=== PATIENT | male | born 1970 | race Caucasian/White ===

== ENCOUNTER 2024-09-29 14:07 | Emergency (ER) | payer BC, SELFPAY ==
[2024-09-29 14:16] VITALS: BP 147/107
[2024-09-29 14:45] LABS: COVID-19 Antigen Negative (Negative)
[2024-09-29 16:12] LABS: Glucose - Point of Care 284 mg/dl (70-99)
--- NOTE | 2024-09-29 16:15 | ED.GENMED ---
History of Present Illness
General
Chief Complaint: Fatigue
Source: patient
Exam Limitations: none
Time Seen by Provider: 09/29/24 15:56
Nursing documentation reviewed up to this point in time: agreed with
History of Present Illness
History of Present Illness:
Patient with history of insulin-dependent diabetes, presents to ED secondary to 3-day history of persistent fatigue, body ache, and decreased appetite. Denies fever or chills. Denies coughing. Denies headache. Denies dizziness. Denies sore
throat. Denies nausea, vomiting, or diarrhea. Denies rash. Patient states that his parent was admitted to the hospital recently. Deny recent travel. Denies recent change in medications or diet.
Review of Systems
Review of Systems
Allergies reviewed?: Yes
All Other Systems: ROS reviewed and negative except as documented in HPI and ROS
Constitutional: Reports no symptoms; Denies fever
EENT: Reports no symptoms
Respiratory: Reports no symptoms
Cardiac: Reports no symptoms
ABD/GI: Reports no symptoms
: Reports no symptoms
Musculoskeletal: Reports muscle pain
Skin: Reports no symptoms; Denies rash
Neurological: Reports weakness
Phy Exam
Physical Exam
Physical Exam:
Physical Exam
General: mild distress, not acutely ill. afebrile
Head: nc/at. eomi
Neck: supple. no meningeal signs.
Heart: tachycardic, no murmur. equal radial pulses.
Lungs: no acute respiratory distress. clear bilaterally
Abdomen: normal bowel sounds. not tender.
Neuro: alert and oriented. no focal neurological deficits
Skin: no rash
Psychiatric: well kept. interactive and cooperative
Extremities: no edema. no calf tenderness.
Course
Orders/Labs/Results
Orders:
Orders
09/29/24 14:21
COVID-19 Antigen Urgent
Source: Nasal Swab
Influenza A+B Rapid Molecular Urgent
GRISELDA Source: Nasal Swab
Specimen Description:
09/29/24 16:08
Electrocardiogram (*1) Urgent
Reason for Study: Bradycardia / Tachycardia
EKG- Treatment ONCE
09/29/24 16:09
0.9% Sodium Chloride 1000 ml [Nss] 1,000 ml IV BOLUS
09/29/24 16:24
Complete Blood Count/With Diff Urgent
Comprehensive Metabolic Panel Urgent
Magnesium Urgent
Monotest Urgent
TSH Urgent
Troponin I Urgent
09/29/24 19:36
Urinalysis Reflex To Culture Urgent
Date Specimen was Collected: 09/29/24
Time Specimen was Collected: 19:34
Abnormal Lab Results
09/29/24 09/29/24 09/29/24
16:10 16:24 19:36
RBC 4.39 L 10^6/uL
(4.70-6.10)
Hgb 12.8 L g/dL
(13.0-18.0)
Hct 37.9 L %
(39.0-52.0)
Absolute Monos (auto) 0.9 H 10^3/uL
(0.1-0.6)
Sodium 134 L mmol/L
(135-145)
Carbon Dioxide 20 L mmol/L
(22-30)
BUN 25 H mg/dl
(9-20)
Glucose 219 H mg/dl
(70-99)
Magnesium 1.4 L mg/dl
(1.6-2.3)
Urine Glucose 2+ A
(Negative)
POC Glucose 284 H mg/dl
(70-99)
09/29/24 16:24
09/29/24 16:24
Vital Signs
Initial and Last Documented VS:
Initial Vital Signs
Temp Pulse Resp BP Pulse Ox
97.6 F 120 18 147/107 100
09/29/24 14:16 09/29/24 14:16 09/29/24 14:16 09/29/24 14:16 09/29/24 14:16
Last Documented Vital Signs
Temp Pulse Resp BP Pulse Ox
97.6 F 98 24 135/87 99
09/29/24 14:16 09/29/24 19:15 09/29/24 19:15 09/29/24 19:00 09/29/24 18:15
MDM/Problems Addressed
MDM/Problems Addressed:
Patient with an unremarkable workup in ED and remains hemodynamically stable during extended course of observation in ED. History and exam consistent with likely nonspecific viral illness. Patient will be discharged home in stable condition at
this time, with recommendation to follow-up with PCP for reevaluation, or return to ED with worsening symptoms. Patient expresses understanding at time of discharge.
*EKG
Interpreted by ED Provider?: Yes
EKG Intrepretation Date: 09/29/24
Heart Rate: 106
Rate: tachycardiac
Rhythm: sinus
[place]: normal axis
*Critical Care Note
Total Time (30-74mins, 75-104mins- exclusive of procedures): Not Applicable
ED Attending Note
-
Portions of this chart may have been created with voice recognition software.� Occasional wrong word or��sound alike� substitutions may have occurred due to the inherent limitations of voice recognition software.
Discharge Plan
Departure
Patient Disposition: Home (Routine Discharge)
Date of Disposition: 09/29/24
Time of Disposition: 19:49
Patient with high blood pressure during this ER visit?: Yes
Condition: Good
Discharge Problem:
Acute viral syndrome
Instructions: Flu in adults - Discharge instructions
Referrals:
Radu Kingsley PA-C [Family Provider] -
Activity Restrictions/Additional Instructions:
As discussed, please follow-up with your primary care physician for reevaluation, or return to ED with worsening symptoms.
Interventions
Interventions:
*Risk Screen - Suicide Last Done: 09/29/24 14:16
*General Assessment Last Done: 09/29/24 14:16
*Neglect/Abuse Screening Last Done: 09/29/24 20:24
ED- Fall Risk Assessment Last Done: 09/29/24 20:24
*ED COVID-19 Vaccine History Last Done: 09/29/24 14:16
*Nursing Disposition Last Done: 09/29/24 20:24
Discharge Date and Time
Discharge Date/Time: 09/29/24 20:24
Print Language: ITALIAN
[2024-09-29 16:29] VITALS: BP 136/80
[2024-09-29] MEDS: NSS 1000 IV (16:32)
[2024-09-29 16:43] LABS: % Basophils 0.5 % (0-2); % Eosinophils 2.4 % (0-6); % Immature Granulocytes 0.3 % (0-0.5); % Lymphocytes 30.7 % (20.5-51.1); % Monocytes 9.3 % (1.7-9.3); % Neutrophils 56.8 % (42.2-75.2); Absolute Basophils 0.1 10^3/uL (0-0.2); Absolute Eosinophils 0.2 10^3/uL (0-0.7); Absolute Lymphocytes 2.8 10^3/uL (1.2-3.4); Absolute Monocytes 0.9 10^3/uL (0.1-0.6); Absolute Neutrophils 5.3 10^3/uL (1.4-6.5); Hematocrit 37.9 % (39.0-52.0); Hemoglobin 12.8 g/dL (13.0-18.0); Mean Corp Hgb Conc. 33.8 g/dL (33.0-37.0); Mean Corpuscular Hgb 29.2 pg (27.0-31.0); Mean Corpuscular Volume 86.3 fL (80.0-94.0); Mean Platelet Volume 10.4 fL (7.4-10.4); Nucleated Red Blood Cells % 0 % (-); Platelet Count 296 10^3/uL (130-400); Red Blood Cell Count 4.39 10^6/uL (4.70-6.10); Red Cell Dist. Width 13.2 % (11.5-14.5); White Blood Cell Count 9.3 10^3/uL (4.8-10.8)
[2024-09-29 16:57] LABS: ALT (SGPT) 18 U/L (0-50); AST (SGOT) 18 U/L (17-59); Albumin 4.2 g/dl (3.5-5.0); Alkaline Phosphatase 67 U/L (38-126); Blood Urea Nitrogen 25 mg/dl (9-20); Calcium 8.5 mg/dl (8.4-10.2); Carbon Dioxide 20 mmol/L (22-30); Chloride 100 mmol/L (98-107); Glucose 219 mg/dl (70-99); Magnesium 1.4 mg/dl (1.6-2.3); Potassium 3.8 mmol/L (3.5-5.1); Sodium 134 mmol/L (135-145); Total Bilirubin 0.2 mg/dl (0.2-1.3); Total Protein 6.7 g/dl (6.3-8.2); eGFR > 60.00
[2024-09-29 17:00] VITALS: BP 128/75
[2024-09-29 17:08] LABS: Troponin I < 0.012 ng/ml
[2024-09-29 17:11] LABS: Monotest Negative (Negative)
[2024-09-29 17:40] LABS: TSH 1.75 uIU/ml (0.47-4.68)
[2024-09-29 18:00] VITALS: BP 132/83
[2024-09-29 19:00] VITALS: BP 135/87
[2024-09-29 19:45] LABS: Urine Albumin Negative (Neg - Trace); Urine Bilirubin Negative (Negative); Urine Character Clear (Clear); Urine Color Yellow; Urine Glucose 2+ (Negative); Urine Ketone Negative (Negative); Urine Leukocyte Negative (Negative); Urine Nitrite Negative (Negative); Urine Occult Blood Negative (Negative); Urine Urobilinogen Negative (Neg - 1+)
== END 2024-09-29 20:24 | disposition home or self-care (01) ==
LOC: EMR 14:07
PROVIDERS: Emergency Medicine; EMERGENCY PHYSICIAN Emergency Medicine; FAMILY PHYSICIAN Physician Assistant Medical
DX: B34.9 Viral infection, unspecified (principal); E11.9 Type 2 diabetes mellitus without complications; Z79.4 Long term (current) use of insulin
CPT/HCPCS: 96360; 99284; 80053; 81003; 82962; 83735; 84443; 84484; 85025; 86308; 87502; 87811; 93005

== ENCOUNTER 2025-03-29 12:22 | Observation (INO) | payer MEDICAID, SELFPAY ==
[2025-03-29] VITALS (12 sets, daily range): BP systolic 132–190; BP diastolic 81–121; BMI 31.1
[2025-03-29 07:49] LABS: Glucose - Point of Care 436 mg/dl (70-99)
--- NOTE | 2025-03-29 08:13 | ED.GENMED ---
History of Present Illness
General
Chief Complaint: Weakness
Source: patient
Exam Limitations: none
Time Seen by Provider: 03/29/25 07:54
Nursing documentation reviewed up to this point in time: agreed with
History of Present Illness
History of Present Illness:
Patient with history of bipolar disorder and diabetes, presents to ED secondary to generalized weakness, decreased appetite, and 'not feeling well', over the past 3 days. As such, patient has not been taking his medications. Denies fever. Denies
coughing. Patient reports nausea sensation without vomiting or diarrhea. Denies abdominal pain. Denies rash. Denies headache. Denies dizziness. Denies sick contact. Denies recent travel. Denies recent change in medications or diet.
Review of Systems
Review of Systems
Allergies reviewed?: Yes
All Other Systems: ROS reviewed and negative except as documented in HPI and ROS
Constitutional: Reports no symptoms; Denies fever
EENT: Reports no symptoms
Respiratory: Reports no symptoms; Denies cough
Cardiac: Reports no symptoms
ABD/GI: Reports nausea; Denies abdominal pain, vomiting or diarrhea
: Reports no symptoms
Musculoskeletal: Reports no symptoms
Skin: Reports no symptoms
Neurological: Reports weakness; Denies dizzy or headache
Phy Exam
Physical Exam
Physical Exam:
Physical Exam
General: mild distress, not acutely ill. afebrile. tachycardic
Head: nc/at. eomi
Neck: supple. no meningeal signs. normal posterior pharynx
Heart: s1/s2 regular rate and rhythm
Lungs: no acute respiratory distress. clear bilaterally
Abdomen: normal bowel sounds. not tender.
Neuro: alert and oriented x 3. no focal neurological deficits
Skin: no rash
Psychiatric: well kept. interactive and cooperative
Extremities: no edema. no calf tenderness.
Sepsis
Sepsis Screening
Sepsis Assessment: Sepsis Ruled Out
Sepsis Screen
Sepsis Screen: Sepsis Ruled Out
Date: 03/30/25
Time: 09:17
Course
Orders/Labs/Results
Orders:
Orders
03/29/25 08:07
Electrocardiogram (*1) Urgent
Reason for Study: Tachycardia
EKG- Treatment ONCE
03/29/25 08:09
IV Insert/Care/Rem.- Treatment PRN
0.9% Sodium Chloride 1000 ml [Nss] 1,000 ml IV BOLUS
03/29/25 08:19
B-Hydroxybutyrate Urgent
Complete Blood Count/With Diff Urgent
Comprehensive Metabolic Panel Urgent
Glycohemoglobin (HgbA1c) Urgent
Magnesium Urgent
Troponin I Urgent
Venous Blood Gas Urgent
%Oxygen/Room Air: 98
03/29/25 08:35
Depakane Urgent
TSH Reflex To Free T4 Urgent
Comment: ADDON
03/29/25 09:21
0.9% Sodium Chloride 1000 ml [Nss] 1,000 ml IV BOLUS
03/29/25 09:50
Valproate Sodium [Depacon] 500 mg 0.9% Sodium Chloride 50 ml [Nss] 50 ml IV NOW
03/29/25 Lunch
2000 calorie (17 carb) Diabetic
At Your Request: Limited, Desilverizer Required
Does patient need a safe tray?: No
03/29/25 10:07
Thiothixene [Navane] 2 mg PO NOW STA
03/29/25 11:36
Insulin Aspart [NOVOLOG vial] 5 units SC NOW STA
03/29/25 11:39
Admit/Transfer Patient As Directed
Co-Sign Provider:
Level of Care: Observation services
Assign to:: Telemetry
Physician / Group: Dr Perez
Diagnosis: MARYSOL
Reason for Telemetry: Arrhythmia
Date to Stop Telemetry: 04/01/25
Time to Stop Telemetry: 11:00
PRN Pain Medication Management As Directed
May give lesser potent ordered pain med per pt: Yes
preference::
Protocol:: Medication orders for pain may be administered in a
manner that supports deferring to patient preference
when the pt is:
- Requesting an ordered lesser potent pain medication.
Least to most potent pain medications are defined
as: acetaminophen < NSAID < tramadol < opioids
(morphine, oxycodone, hydromorphone).
- Requesting a lesser dose of the same medication IF
ORDERED.
- Requesting a less intrusive route of administration
if both routes are prescribed by the provider (PO <
IV).
03/29/25 11:42
Code Status As Directed
Resuscitation Status: Full Code
03/29/25 11:45
0.9% Sodium Chloride 1000 ml [Nss] 1,000 ml IV 125 mls/hr
0.9% Sodium Chloride 1000 ml [Nss] 1,000 ml IV 125 mls/hr
Dextrose 50%-Water [Dextrose 50% Syringe] 12.5 grams IV [id number] PRN
Glucagon [GlucaGen] 1 mg IM PRN PRN
Bedside Glucose Monitoring As Directed
Frequency: AC&HS
Additional Instructions:: Change to q6h if pt on TPN, tube feeding or not eating
03/29/25 11:46
Bladder Scan As Directed
Follow Bladder Retention/Intermittent Cath Algorithm?: Yes
PRN if no void in __ hours: 6
Frequency: Per Retention Algorithm
If Bladder Scan Result >: 400
then:: Straight cath
Straight Cath As Directed
Frequency: Per Retention Algorithm
Additional Instructions: straight cath as needed per acute urinary retention algorithm for 24 hrs
Additional Instructions: for bladder scan greater than 400 mL
03/29/25 12:00
0.9% Sodium Chloride 500 ml [Nss] 500 ml IV 100 mls/hr
03/29/25 13:31
Bisacodyl [Dulcolax] 10 mg RECTAL [id number] PRN
Docusate W/Senna [Senokot-S] 1 tablet PO BIDPRN PRN
Polyethylene Glycol Powder [Miralax] 17 grams PO DAILYPRN PRN
03/29/25 13:31
Activity As Directed
Activity Level: Out of Bed-Early Mobility
Vital Signs As Directed
Frequency: Per unit guidelines
DX Deep Vein Thrombosis Video Routine
03/29/25 16:00
Heparin 5,000 units SC Q8
03/29/25 16:30
Insulin Aspart Corrective Mod [Novolog Flexpen-Moderate Resistance] See Protocol SC AC
Insulin Aspart Pen [Novolog Flexpen] 12 units SC AC
03/29/25 18:00
Divalproex Delayed Rel. 12 Hr [Depakote (12 Hr Release)] 500 mg PO QPM
03/29/25 22:36
Urinalysis Urgent
Date Specimen was Collected: 03/29/25
Time Specimen was Collected: 22:32
03/30/25 06:14
Basic Metabolic Panel IN AM
Complete Blood Count/No Diff IN AM
03/30/25 08:00
Divalproex Delayed Rel. 12 Hr [Depakote (12 Hr Release)] 1,000 mg PO DAILY
thiothixene See Dose Instructions PO DAILY
04/01/25 11:00
DC Protocol for Telemetry ONCE
Abnormal Lab Results
03/29/25 03/29/25 03/29/25
07:47 08:19 08:35
Abs Immat Gran (auto) 0.1 H 10^3/uL
(0-0.05)
Absolute Monos (auto) 1.0 H 10^3/uL
(0.1-0.6)
Immature Gran % 0.6 H %
(0-0.5)
Monocytes % 10.8 H %
(1.7-9.3)
VBG pO2 76 H mmHg
(30-50)
BUN 27 H mg/dl
(9-20)
Creatinine 1.4 H mg/dL
(0.7-1.3)
Glucose 491 H* mg/dl
(70-99)
Hemoglobin A1c 7.6 H %
(4.0-5.6)
Valproic Acid 22.5 L ug/ml
(50.0-120.0)
POC Glucose 436 H mg/dl
(70-99)
03/29/25 03/29/25
09:01 11:09
Abs Immat Gran (auto)
Absolute Monos (auto)
Immature Gran %
Monocytes %
VBG pO2
BUN
Creatinine
Glucose
Hemoglobin A1c
Valproic Acid
POC Glucose 396 H mg/dl 284 H mg/dl
(70-99) (70-99)
03/29/25 08:19
03/29/25 08:19
Vital Signs
Initial and Last Documented VS:
Initial Vital Signs
Pulse Resp Pulse Ox
123 20 96
03/29/25 07:58 03/29/25 07:58 03/29/25 07:58
Last Documented Vital Signs
Temp Pulse Resp BP Pulse Ox
99.5 F 128 17 179/108 96
03/30/25 08:49 03/30/25 08:49 03/30/25 08:49 03/30/25 08:49 03/30/25 08:49
MDM/Problems Addressed
MDM/Problems Addressed:
History and exam consistent with hyperglycemia without anion gap, likely secondary to dehydration. Acute renal failure noted, likely prerenal due to lack of oral intake. Depakote level found to be subtherapeutic. As such, patient will be given
Depakote 500 mg IV bolus in ED.
BS noted after 2 L IVF bolus. After discussion with admitting hospitalist, will provide 5 units insulin SC.
*Pulse Oximetry
SaO2: 96
Oxygen Mode of Delivery: Room air
Patient hypoxic: no
*EKG
Interpreted by ED Provider?: Yes
EKG Intrepretation Date: 03/29/25
Heart Rate: 117
Rate: tachycardiac
Rhythm: sinus
[place]: normal axis
Interval: normal interval
*Critical Care Note
Total Time (30-74mins, 75-104mins- exclusive of procedures): Not Applicable
ED Attending Note
-
Portions of this chart may have been created with voice recognition software.� Occasional wrong word or��sound alike� substitutions may have occurred due to the inherent limitations of voice recognition software.
Discharge Plan
Departure
Patient Disposition: Admit
Date of Disposition: 03/29/25
Time of Disposition: 10:12
Admit to: Med/Surg
Presentation/result/management discussed w/ accepting MD/DO: Hospitalist
Discharge Problem:
Hyperglycemia, Acute renal failure, subtherapeutic drug level
Interventions
Interventions:
*General Assessment Last Done: 03/29/25 08:12
*Neglect/Abuse Screening Last Done: 03/29/25 08:24
*Nursing Disposition Last Done: 03/29/25 13:26
ED- Cardiac Assessment Last Done: 03/29/25 08:15
ED- Neurological Assessment Last Done: 03/29/25 08:15
ED- Pulmonary Assessment Last Done: 03/29/25 08:15
Discharge Date and Time
Discharge Date/Time: 03/29/25 13:37
[2025-03-29] MEDS: NSS 1000 IV ×3 (08:16→12:18)
[2025-03-29 08:35] LABS: Venous Blood Gas B.E. -1.6 mmol/L (-4 to +4); Venous Blood Gas HCO3 23.7 mmol/L (22-27); Venous Blood Gas O2 Sat % 96.4 %; Venous Blood Gas pCO2 41 mmHg (35-48); Venous Blood Gas pH 7.37 (7.32-7.43); Venous Blood Gas pO2 76 mmHg (30-50)
[2025-03-29 08:36] LABS: Venous Blood Gas O2 Therapy 98
[2025-03-29 08:38] LABS: % Basophils 0.6 % (0-2); % Eosinophils 0.8 % (0-6); % Immature Granulocytes 0.6 % (0-0.5); % Lymphocytes 28.6 % (20.5-51.1); % Monocytes 10.8 % (1.7-9.3); % Neutrophils 58.6 % (42.2-75.2); Absolute Basophils 0.1 10^3/uL (0-0.2); Absolute Eosinophils 0.1 10^3/uL (0-0.7); Absolute Immature Granulocytes 0.1 10^3/uL (0-0.05); Absolute Lymphocytes 2.8 10^3/uL (1.2-3.4); Absolute Neutrophils 5.6 10^3/uL (1.4-6.5); Hematocrit 42.7 % (39.0-52.0); Hemoglobin 14.3 g/dL (13.0-18.0); Mean Corp Hgb Conc. 33.5 g/dL (33.0-37.0); Mean Corpuscular Hgb 29.2 pg (27.0-31.0); Mean Corpuscular Volume 87.1 fL (80.0-94.0); Nucleated Red Blood Cells % 0 % (-); Platelet Count 268 10^3/uL (130-400); Red Cell Dist. Width 14.1 % (11.5-14.5); White Blood Cell Count 9.6 10^3/uL (4.8-10.8)
[2025-03-29 09:02] LABS: Glucose - Point of Care 396 mg/dl (70-99)
[2025-03-29 09:13] LABS: Troponin I < 0.012 ng/ml
[2025-03-29 09:19] LABS: Depakane 22.5 ug/ml (50.0-120.0)
[2025-03-29 09:33] LABS: AST (SGOT) 23 U/L (17-59); Albumin 4.7 g/dl (3.5-5.0); Alkaline Phosphatase 80 U/L (38-126); Blood Urea Nitrogen 27 mg/dl (9-20); Calcium 9.9 mg/dl (8.4-10.2); Carbon Dioxide 22 mmol/L (22-30); Chloride 103 mmol/L (98-107); Estimated Creatinine Clearance 79 ml/min; Glucose 491 mg/dl (70-99); Magnesium 1.8 mg/dl (1.6-2.3); Potassium 4.9 mmol/L (3.5-5.1); Sodium 139 mmol/L (135-145); Total Bilirubin 0.6 mg/dl (0.2-1.3); Total Protein 7.4 g/dl (6.3-8.2); eGFR 59.36
[2025-03-29] MEDS: DEPACON 55 MG IV (10:00)
[2025-03-29 10:01] LABS: ALT (SGPT) 37 U/L (0-50)
[2025-03-29 10:47] LABS: B-Hydroxybutyrate 0.19 mmol/L (0.02-0.27)
[2025-03-29 11:10] LABS: Glucose - Point of Care 284 mg/dl (70-99)
--- NOTE | 2025-03-29 11:43 | HPS.HSE ---
Family Physician
-
Family Physician: MAIDA MANLEY PA-C
Chief Complaint
-
Fatigue
History of Present Illness
Patient 54 years old male with past medical history of bipolar, diabetes mellitus, obesity, came into the hospital with generalized weakness. Patient tells me that he feels 'extremely tired' for the last several days and also decreased appetite and
has not been taking his medications over the last couple of days. He denies nausea vomiting or diarrhea. He denies fevers or chills. He denies chest pain or shortness of breath. He denies cough dysuria or rash. In the ER he was noted to be in
MARYSOL and significant hyperglycemia and he was given IV fluid and some insulin. He was referred to hospitalist service for further evaluation
Medical History
Past Medical History
Past Medical History: Reports Other (Diabetes mellitus, bipolar disorder, obesity.)
Past Surgical History: Reports None
Social History
Tobacco: Non-smoker
Alcohol: None
Drug: None
Family History
Family History: Not pertinent
Allergies / Home Medications
Allergies reflects when Allergies were last updated in [employer].
Home Medications with original date entered in [employer]
Allergy/Medication List:
Allergies
Allergy/AdvReac Type Severity Reaction Status Date / Time
No Known Allergies Allergy Verified 09/29/24 14:19
Home Medications
divalproex 500 mg tablet,delayed release 1,000 mg PO DAILY 03/29/25
divalproex 500 mg tablet,delayed release 500 mg PO QPM 03/29/25
hydrochlorothiazide 12.5 mg capsule 12.5 mg PO DAILY 03/29/25
insulin aspart U-100 100 unit/mL (3 mL) subcutaneous pen (Novolog FlexPen U-100 Insulin aspart) 12 unit SC AC 03/29/25
insulin glargine 100 unit/mL subcutaneous solution (Lantus U-100 Insulin) 30 unit SC QPM 03/29/25
insulin glargine 100 unit/mL subcutaneous solution (Lantus U-100 Insulin) 45 unit SC DAILY 03/29/25
metformin 1,000 mg tablet 1,000 mg PO BID 03/29/25
semaglutide 1 mg/dose (4 mg/3 mL) subcutaneous pen injector (Ozempic) 1 mg SC FR 03/29/25
sitagliptin phosphate 100 mg tablet (Januvia) 100 mg PO DAILY 03/29/25
thiothixene 2 mg capsule 2 mg PO DAILY 03/29/25
Review of Systems
-
A 12 point ROS was completed and negative except as noted: Yes
Physical Exam
Vital Signs
Vital Signs
Temp Pulse Resp BP Pulse Ox
98.2 F 99 32 162/99 96
03/29/25 08:04 03/29/25 10:00 03/29/25 10:00 03/29/25 10:00 03/29/25 08:17
Physical exam:
General: Acutely ill
HEENT: Normocephalic, Atraumatic and Moist Mucous Membranes
Respiratory: Clear to Auscultation; Negative Wheezes, Rales or Rhonchi
Cardiac: Regular Rhythm and S1/S2
GI: Soft, Nontender and Nondistended
Musculoskeletal: No Clubbing, No Cyanosis and No Edema
Neuro: Awake, Alert and Oriented, no neurological deficit
Psych: Calm, flat affect
Physical Exam
General: Other
Laboratory Results
-
03/29/25 08:19
03/29/25 08:19
Laboratory Results
Total Bilirubin 0.6 mg/dl (0.2-1.3) 03/29/25 08:19
AST 23 U/L (17-59) 03/29/25 08:19
ALT 37 U/L (0-50) 03/29/25 08:19
Alkaline Phosphatase 80 U/L (38-126) 03/29/25 08:19
Troponin I < 0.012 ng/ml 03/29/25 08:19
Data Reviewed
-
Lab Data: Labs Reviewed by me
Impression/Plan
-
IMPRESSION:
Patient 54 years old male with history of bipolar disorder, diabetes mellitus, came into the hospital with generalized weakness and found to be in MARYSOL and significant hyperglycemia. Patient will be observed in the hospital.
PLAN:
Generalized weakness:
Unclear etiology, probably viral
Check CPK
Check TSH
groundwater monitoring technician
Increase ambulation
MARYSOL:
Aggressive IV fluid
Avoid nephrotoxic
Check bladder scan
Check renal function in a.m.
Diabetes mellitus with hyperglycemia:
No evidence of DKA or honk
Blood sugar close to 500 but coming down to 200's now prior to insulin treatment.
Resume his home insulin regimen and oral hypoglycemic
Add insulin sliding scale and check hemoglobin A1c
Bipolar:
Given IV Depakote
Depakote level 22.5 today
Resume oral Depakote and thiothixene
DVT prophylaxis:
Heparin SC
CODE STATUS:
Full code
Time spent 55 minutes
[2025-03-29] MEDS: NOVOLOG vial 5 UNITS SC (12:12)
[2025-03-29 12:37] LABS: Glycohemoglobin (HgbA1c) 7.6 % (4.0-5.6)
--- NOTE | 2025-03-29 14:30 | PTCARENOTE ---
Upon arrival to unit pt 190/118. Patient denies discomfort, asking for something to eat and drink. IVF running, will recheck BP agin after pt is settled.
--- NOTE | 2025-03-29 15:15 | PTCARENOTE ---
BP recheck 172/121. Patient repors 6/10 headache pain behind R eye. Dr. Perez contacted, IV Hydralazine administered and PO Tylenol. 15 minutes later patient reports headache has resolved. BP rechecked, now 179/106 manually, HR tachy with ambulation
110-140s, patient asymptomatic. Dr. Perez updated. PO Norvasc administered, see MAR. EKG completed. Patient sent for CT of head.
[2025-03-29] MEDS: TYLENOL 650 MG PO (15:26)
[2025-03-29] MEDS: APRESOLINE 10 MG IV (15:27)
--- NOTE | 2025-03-29 15:50 | PTCARENOTE ---
Patient becoming agitated during care and admissions process. Asking staff to leave him alone and get out of his room. 'You've been harassing me for an hour and I just want an hour alone'. Uncooperative at times, refusing to go to CT scan. Staff
convincing patient to go.
[2025-03-29] MEDS: NORVASC 5 MG PO (16:12)
[2025-03-29] MEDS: HEPARIN 5000 UNITS SC (16:12)
[2025-03-29 16:35] LABS: Glucose - Point of Care 262 mg/dl (70-99)
--- NOTE | 2025-03-29 17:14 | PTCARENOTE ---
RN going to check on patient, finding him getting dressing with director of casework department off. States he is being harassed here and is going to leave. RN deescalating situation, using therapeutic communication. Patient agreeing to stay for now and to be
reconnected to telemetry monitoring--but states he wants to be left alone for an hour.
[2025-03-29 17:37] LABS: TSH Reflex To Free T4 1.71 uIU/ml (0.47-4.68)
[2025-03-29] MEDS: LR 1000 IV (18:31)
[2025-03-29] MEDS: NOVOLOG FLEXPEN SC (18:34)
[2025-03-29] MEDS: DEPAKOTE (12 HR RELEASE) 500 MG PO (18:35)
--- NOTE | 2025-03-29 18:35 | PTCARENOTE ---
Patient assisted to transfer in to private room, all belongings brought at time of transfer. Patient ambulating with steady gait. Patient then refusing to take insulin from this RN, stating 'You're harassing me. I'm going to report you. I will take
my insulin from my new nurse'. RN asking if she can administer insulin before she goes, but pt adamantly refusing. Will pass this on to next RN.
[2025-03-29 18:45] LABS: Glucose - Point of Care 325 mg/dl (70-99)
[2025-03-29] MEDS: NOVOLOG FLEXPEN-MODERATE RESISTANCE 7 UNITS SC (20:10)
[2025-03-29] MEDS: LANTUS 0.3 UNITS SC (20:11)
[2025-03-29 22:32] LABS: Glucose - Point of Care 326 mg/dl (70-99)
[2025-03-29 22:49] LABS: Urine Albumin 2+ (Neg - Trace); Urine Bilirubin Negative (Negative); Urine Character Clear (Clear); Urine Color Yellow; Urine Glucose 4+ (Negative); Urine Ketone Negative (Negative); Urine Leukocyte Negative (Negative); Urine Nitrite Negative (Negative); Urine Occult Blood 1+ (Negative); Urine Urobilinogen Negative (Neg - 1+)
[2025-03-29 22:54] LABS: Urine Squamous Cell 0-2 /LPF (Few)
[2025-03-29 22:55] LABS: Urine Bacteria Few (Negative)
[2025-03-29 22:56] LABS: Amphetamines Negative (Negative); Barbiturates Negative (Negative); Benzodiazepines Negative (Negative); Buprenorphine Negative (Negative); Cocaine Negative (Negative); Marijuana Negative (Negative); Methadone Negative (Negative); Methamphetamines Negative (Negative); Opiates Negative (Negative); Phencyclidine Negative (Negative); Tricyclic Antidepressants Negative (Negative)
[2025-03-30] MEDS: HEPARIN SC (00:12)
[2025-03-30] MEDS: NSS 1000 IV (02:29)
[2025-03-30 02:57] VITALS: BP 173/107
[2025-03-30] MEDS: COMPAZINE 5 MG IV (06:19)
[2025-03-30 06:24] LABS: Hematocrit 39.2 % (39.0-52.0); Mean Corp Hgb Conc. 33.2 g/dL (33.0-37.0); Mean Corpuscular Hgb 28.8 pg (27.0-31.0); Mean Corpuscular Volume 86.9 fL (80.0-94.0); Mean Platelet Volume 9.7 fL (7.4-10.4); Platelet Count 256 10^3/uL (130-400); Red Blood Cell Count 4.51 10^6/uL (4.70-6.10); Red Cell Dist. Width 14.1 % (11.5-14.5); White Blood Cell Count 10.6 10^3/uL (4.8-10.8)
--- NOTE | 2025-03-30 06:27 | PTCARENOTE ---
Pt sitting on side of bed with telemetry off asking for his IV to be removed saying 'I am going home today I am going to sign myself out' Pt agreed to have his blood work drawn and to wait for the doctor to see it. YOVANY Bey notified about situation.
[2025-03-30 06:53] LABS: Blood Urea Nitrogen 18 mg/dl (9-20); Calcium 9.8 mg/dl (8.4-10.2); Carbon Dioxide 23 mmol/L (22-30); Chloride 108 mmol/L (98-107); Creatine Phosphokinase 136 U/L (55-170); Estimated Creatinine Clearance 100 ml/min; Glucose 272 mg/dl (70-99); Potassium 4.4 mmol/L (3.5-5.1); Sodium 142 mmol/L (135-145); eGFR > 60.00
[2025-03-30 07:48] LABS: Glucose - Point of Care 283 mg/dl (70-99)
[2025-03-30 08:49] VITALS: BP 179/108
[2025-03-30] MEDS: NSS IV (08:58)
[2025-03-30] MEDS: NOVOLOG FLEXPEN 12 UNITS SC (09:23)
[2025-03-30] MEDS: NOVOLOG FLEXPEN-MODERATE RESISTANCE 5 UNITS SC (09:24)
[2025-03-30] MEDS: LANTUS 0.45 UNITS SC (09:25)
[2025-03-30] MEDS: DEPAKOTE (12 HR RELEASE) 1000 MG PO (09:26)
[2025-03-30] MEDS: GLUCOPHAGE 1000 MG PO (09:27)
[2025-03-30] MEDS: HEPARIN 5000 UNITS SC (09:28)
[2025-03-30] MEDS: JANUVIA 100 MG PO (09:28)
[2025-03-30] MEDS: ORETIC 12.5 MG PO (09:32)
[2025-03-30] MEDS: COZAAR 25 MG PO (09:32)
[2025-03-30] MEDS: NORVASC 5 MG PO (09:33)
[2025-03-30] MEDS: TOPROL XL 25 MG PO (09:57)
[2025-03-30 11:23] VITALS: BP 159/100
--- NOTE | 2025-03-30 11:36 | W.PN.HOSP.TC ---
Today's Communication/Plan
-
Discharge planning today
Assessment / Plan
Assessment / Plan
Physical exam:
General: Well Developed, Well Nourished and No Apparent Distress
HEENT: Normocephalic, Atraumatic and Moist Mucous Membranes
Respiratory: Clear to Auscultation; Negative Wheezes, Rales or Rhonchi
Cardiac: Regular Rhythm and S1/S2
GI: Soft, Nontender and Nondistended
Musculoskeletal: No Clubbing, No Cyanosis and No Edema
Neuro: Awake, Alert and Oriented, no neurological deficit, mild tremors
Psych: Flat affect
A/P:
Generalized weakness:
Unclear etiology but feels back to normal
TSH and CPK were normal labs unrevealing and remains afebrile
Urine toxicology negative
MARYSOL:
Resolved
Stop IV fluids
Hypertension, uncontrolled:
Improving
Add Toprol-XL 25 mg once a day
Continue his outpatient losartan and HCTZ
Might need further adjustments as outpatient
Diabetes mellitus with hyperglycemia:
Improving
No evidence of DKA or honk
Back on his home regimen
Hemoglobin A1c 7.6
Bipolar:
Given IV Depakote
Depakote level 22.5 today
Resume oral Depakote and thiothixene
He tells me he follows up with behavioral health provider at [place] and he has scheduled good follow-up as outpatient who I recommended to continue
DVT prophylaxis:
Heparin SC
CODE STATUS:
Full code
Anticipated Discharge: Today
Subjective/Interval History
-
Date of Service: March 30, 2025
Patient denies any new complaints. Mild tremors but states that this is chronic and normal for him. Blood pressure elevated but trending down overall.
Objective Data
-
Labs:
Laboratory Results
03/30/25
06:14
WBC 10.6
Hgb 13.0
Hct 39.2
Plt Count 256
Sodium 142
Potassium 4.4
Chloride 108 H
Carbon Dioxide 23
BUN 18
Creatinine 1.1
Glucose 272 H
Calcium 9.8
Vital Signs:
Vital Signs
Temp Pulse Resp BP Pulse Ox
99 F 109 16 159/100 96
03/30/25 11:23 03/30/25 11:23 03/30/25 11:23 03/30/25 11:23 03/30/25 11:23
I&O
03/29/25 03/30/25 03/31/25
06:59 06:59 06:59
Intake Total 0 / 0
Output Total 0 / 0
Balance 0 / 0
--- NOTE | 2025-03-30 11:36 | W.DCSUMMARY ---
Discharge Summary
Discharge Data
Date of Admission: 03/29/25
Date of Discharge: 03/30/25
-
Pending Results: No
Hospital Course
Patient 54 years old male with history hypertension, diabetes mellitus, bipolar came into the hospital with generalized fatigue and found to be in MARYSOL. Patient also was noticed to be very hypertensive. Patient was started on IV fluids and his
kidney function improved. His creatinine went from 1.4 down to 1.1. He was given supplemental insulin and restarted back on his home regimen of insulin and oral hypoglycemics once his renal function improved. Patient also was restarted on his
home regimen for antihypertension but also added a beta-crystal to his regimen. Patient feels back to his baseline and he will be discharged in stable condition today.
Discharge Plan
-
Patient Disposition: Home (Routine Discharge)
Discharge Diagnosis/Procedures: Acute kidney injury. Hypertension.
Diet: Low Cholesterol
Activity: As tolerated
Blood Work: Please PCP to order CBC, BMP within 1 week
Referrals:
Radu Kingsley PA-C [Family Provider] - in less than 1 week
Prescriptions:
New
metoprolol succinate 25 mg Tablet Extended Release 24 Hr
25 mg PO DAILY 30 Days Qty: 30 0RF
Continued
insulin glargine [Lantus U-100 Insulin] 100 unit/mL Solution
45 unit SC DAILY
insulin glargine [Lantus U-100 Insulin] 100 unit/mL Solution
30 unit SC QPM
thiothixene 2 mg Capsule
2 mg PO DAILY
insulin aspart U-100 [Novolog FlexPen U-100 Insulin] 100 unit/mL (3 mL) Insulin Pen
12 unit SC AC
Ozempic 1 mg/dose (4 mg/3 mL) Pen Injector
1 mg SC FR
divalproex 500 mg Tablet,Delayed Release (Dr/Ec)
1,000 mg PO DAILY
divalproex 500 mg Tablet,Delayed Release (Dr/Ec)
500 mg PO QPM
metformin 1,000 mg Tablet
1,000 mg PO BID
hydrochlorothiazide 12.5 mg Capsule
12.5 mg PO DAILY
Januvia 100 mg Tablet
100 mg PO DAILY
losartan 25 mg Tablet
25 mg PO DAILY
Discharge Orders:
Discharge Patient (As Directed); Ordered 03/30/25
Ordered By: Alex Perez
Discharge Date and Time
Print Language: MOZAMBICAN
[2025-03-30 12:29] LABS: Glucose - Point of Care 200 mg/dl (70-99)
--- NOTE | 2025-03-30 12:58 | CM ---
Todd felton reviewed patient's chart and met with patient and patient is anxious to leave, chart review states that julia nis MA Pending however pateint thinks he has [place] #1
--- NOTE | 2025-03-30 13:00 | CM ---
Chart reviewed and patient lives with his brother in a 2nd floor condo, patient is independent with adl's and ambulation, no dme, patient drives, per patient he has [employer] insurance #[id number], patient was admitted under OBS, OBS letter provided
to patient and signed.
PCP: Radu Kingsley
Pharmacy: [facility] in [place]
Plan; Home no needs, patient declined AD information.
[2025-03-30] MEDS: NOVOLOG FLEXPEN SC (13:34)
[2025-03-30] MEDS: NOVOLOG FLEXPEN-MODERATE RESISTANCE SC (13:34)
== END 2025-03-30 12:59 | disposition home or self-care (01) ==
LOC: 4 WEST ACU 12:22
PROVIDERS: Internal Medicine; ADMITTING PHYSICIAN Hospitalist; EMERGENCY PHYSICIAN Emergency Medicine; FAMILY PHYSICIAN Physician Assistant Medical
DX: N17.9 Acute kidney failure, unspecified (principal); I11.9 Hypertensive heart disease without heart failure; R53.1 Weakness; F31.9 Bipolar disorder, unspecified; E11.65 Type 2 diabetes mellitus with hyperglycemia; R11.0 Nausea; R00.0 Tachycardia, unspecified; R41.82 Altered mental status, unspecified; R25.1 Tremor, unspecified; E66.9 Obesity, unspecified; M85.80 Other specified disorders of bone density and structure, unspecified site; M85.2 Hyperostosis of skull; I67.81 Acute cerebrovascular insufficiency; Z79.899 Other long term (current) drug therapy; Z79.84 Long term (current) use of oral hypoglycemic drugs; Z79.4 Long term (current) use of insulin; Z79.85 Long-term (current) use of injectable non-insulin antidiabetic drugs; Z91.148 Patient's other noncompliance with medication regimen for other reason; Z68.31 Body mass index [BMI] 31.0-31.9, adult
CPT/HCPCS: 70450; 80048; 80053; 80164; 80306; 81003; 81015; 82010; 82550; 82805; 82962; 83036; 83735; 84443; 84484; 85025; 85027; 93005; 96361; 96365; 99285; G0378